=== PATIENT | male | born 1965 | race Caucasian/White ===

== ENCOUNTER 2021-02-10 06:56 | Emergency (ER) | payer SELFPAY ==
[~2021-02-10] VITALS: Ht 170.2 cm; Wt 82.0 kg
[2021-02-10 07:19] VITALS: BP 133/84
[2021-02-10 08:41] LABS: CLARITY URINE CLEAR (CLEAR); COLOR URINE YELLOW (YELLOW); KETONES URINE NEGATIVE (NEGATIVE); LEUKOCYTE ESTERASE URINE TRACE (NEGATIVE); NITRITE URINE NEGATIVE (NEGATIVE); OCCULT BLOOD URINE 1+ (NEGATIVE); PROTEIN URINE NEGATIVE (NEGATIVE); SPECIFIC GRAVITY URINE 1.019 (1.005-1.030)
[2021-02-10] MEDS ORDERED: NITR100C PO (09:16)
== END 2021-02-10 09:25 | disposition home or self-care (01) ==
LOC: ER 06:56
DX: N39.0 Urinary tract infection, site not specified (principal)
CPT/HCPCS: 81003; 87077; 87186; 99283

== ENCOUNTER 2022-03-27 19:51 | Inpatient (IN) | payer OTHER ==
[~2022-03-27] VITALS: Ht 170.2 cm; Wt 85.7 kg
[~2022-03-27 19:51] MED LIST: NITR100C PO
[2022-03-27] MEDS ORDERED: MAGNESIUM/ALUMINUM HYDROXIDE/SIMETHICONE 30ML UDC PO STA (23:43)
[2022-03-27] MEDS ORDERED: ACETAMINOPHEN 325MG TABLET PO STA (23:43)
[2022-03-27] MEDS ORDERED: FAMOTIDINE 20MG/2ML VIAL IV ONE (23:45)
[2022-03-28 00:15] LABS: CHLORIDE 107 mEq/L (98-107)
[2022-03-28 00:23] LABS: MEAN CORPUSCULAR HEMOGLOBIN 31.6 pg (28.0-32.0); MEAN PLATELET VOLUME 8.3 fl (7.4-10.4)
[2022-03-28 00:31] LABS: HEMATOCRIT. 43.8 % (42.0-52.0); HEMOGLOBIN. 15.1 g/dL (14.0-18.0); MEAN CORPUSCULAR VOLUME 91.7 fL (80.0-94.0); PLATELET 217 x1000/uL (130-400); RED BLOOD CELL COUNT 4.78 mill/uL (4.7-6.1); RED CELL DISTRIBUTION WIDTH 13.4 % (11.6-14.6)
[2022-03-28] MEDS ORDERED: ONDANSETRON HCL 4MG/2ML INJ IV STA (00:44)
[2022-03-28] MEDS ORDERED: MORPHINE SULFATE 4 MG/ML CPJ (NOT FOR IM USE) IV STA (00:44)
[2022-03-28] MEDS ORDERED: SODIUM CHLORIDE 0.9% 1,000 ML IV ONE (00:45)
[2022-03-28] MEDS ORDERED: FAMOTIDINE 20MG/2ML VIAL IV NR (03:15)
[2022-03-28] MEDS ORDERED: MAGNESIUM/ALUMINUM HYDROXIDE/SIMETHICONE 30ML UDC PO NR (03:15)
[2022-03-28] MEDS ORDERED: ACETAMINOPHEN 325MG TABLET PO NR (03:15)
[2022-03-28 04:37] LABS: PLATELET ESTIMATE NORMAL
[2022-03-28] MEDS ORDERED: ACETAMINOPHEN 325MG TABLET PO PRN (10:15)
[2022-03-28] MEDS ORDERED: ONDANSETRON HCL 4MG/2ML INJ IV PRN (10:15)
[2022-03-28] MEDS ORDERED: PIPERACILLIN/TAZ 3.375G PREMIX 50 ML IV SCH (10:15)
[2022-03-28] MEDS ORDERED: CLONIDINE 0.1MG TABLET PO PRN (10:15)
[2022-03-28] MEDS: SODIUM CHLORIDE 0.9% 1,000 ML IV SCH ×2 (10:25→18:32)
[2022-03-28] MEDS ORDERED: PIPERACILLIN/TAZOBACTAM 3.375G in DEXT 5% WATER 50ML IV SCH (12:00)
[2022-03-28 13:27] LABS: CHLORIDE 105 mEq/L (98-107)
[2022-03-28 14:34] LABS: AMYLASE 101 IU/L (25-115); HDL CHOLESTEROL 32 mg/dL (40-59); LDL CHOLESTEROL 124 mg/dL (5-100)
[2022-03-28 16:00] VITALS: BP 140/78
[2022-03-28 18:41] VITALS: BP 136/72
[2022-03-28 20:00] VITALS: BP 135/82
[2022-03-28] MEDS ORDERED: ENOXAPARIN 40MG/0.4ML SYR SUBCUT NR (20:30)
[2022-03-28] MEDS: PIPERACILLIN/TAZOBACTAM 3.375 G in DEXTROSE 5% WATER 50 ML IV SCH (22:03)
[2022-03-29] VITALS: BP 124/88
[2022-03-29] MEDS: SODIUM CHLORIDE 0.9% 1,000 ML IV SCH ×3 (02:06→17:46)
[2022-03-29 04:00] VITALS: BP 119/78
[2022-03-29] MEDS: PIPERACILLIN/TAZOBACTAM 3.375 G in DEXTROSE 5% WATER 50 ML IV SCH ×3 (07:08→22:00)
[2022-03-29 07:42] LABS: BASOPHILS % 0.5 % (0.0-2.0); EOSINOPHILS % 4.7 % (0.0-5.0); HEMATOCRIT. 44.2 % (42.0-52.0); HEMOGLOBIN. 15.5 g/dL (14.0-18.0); LYMPHOCYTES % 18.5 % (20.0-50.0); MEAN CORPUSCULAR HEMOGLOBIN 31.9 pg (28.0-32.0); MEAN PLATELET VOLUME 8.4 fl (7.4-10.4); NEUTROPHILS % 69.3 % (40.0-76.0); PLATELET 210 x1000/uL (130-400); RED BLOOD CELL COUNT 4.86 mill/uL (4.7-6.1)
[2022-03-29 07:48] LABS: CHLORIDE 104 mEq/L (98-107)
[2022-03-29 08:00] VITALS: BP 116/73
[2022-03-29 12:00] VITALS: BP 120/75
[2022-03-29] MEDS ORDERED: CEFAZOLIN SODIUM 1000MG/VIAL ONE (15:11)
[2022-03-29] MEDS ORDERED: POLYMYXIN B SULFATE 500000 UNITS/VIAL ONE (15:32)
[2022-03-29] MEDS ORDERED: BUPIVACAINE HCL/PF 0.5% (5MG/ML) 10ML ONE (15:32)
[2022-03-29] MEDS ORDERED: LIDOCAINE HCL 1% 10 MG/ML 10ML VIAL ONE (15:32)
[2022-03-29] MEDS ORDERED: BACITRACIN 15GM TUBE TOP ONE (15:33)
[2022-03-29 16:18] VITALS: BP 103/68
[2022-03-29] MEDS ORDERED: SKIN ADHESIVE 0.7 GM EA TOP ONE (18:23)
[2022-03-29] MEDS ORDERED: MIDAZOLAM HCL 2 MG/2 ML VIAL ONE ×2 (19:28→21:09)
[2022-03-29] MEDS ORDERED: FENTANYL CITRATE/PF 50MCG/ML 2ML VIAL ONE ×2 (19:28→20:19)
[2022-03-29] MEDS ORDERED: PROPOFOL 200MG/20ML VIAL IV ONE (19:30)
[2022-03-29] MEDS ORDERED: SUCCINYLCHOLINE CHLORIDE 200MG/10ML IV ONE (19:39)
[2022-03-29] MEDS ORDERED: ROCURONIUM BROMIDE 10MG/ML VIAL 5ML IV ONE (19:39)
[2022-03-29] MEDS ORDERED: KETOROLAC 30MG/ML VIAL ONE (20:18)
[2022-03-29] MEDS ORDERED: HYDROMORPHONE HCL/PF 2MG/ML CPJ IV PRN (20:30)
[2022-03-29] MEDS ORDERED: FENTANYL CITRATE/PF 50MCG/ML 2ML VIAL IV PRN (20:30)
[2022-03-29] MEDS ORDERED: GLYCOPYRROLATE 0.2 MG/ML 2ML VIAL ONE (20:37)
[2022-03-29] MEDS ORDERED: IPRATROPIUM/ALBUTEROL 0.5-3(2.5)MG/3ML NEB HHN STA (20:53)
[2022-03-29] MEDS ORDERED: HYDROCODONE/ACETAMINOPHEN 5/325MG TABLET PO PRN (21:00)
[2022-03-29] MEDS ORDERED: ALBUTEROL (0.083%) 2.5MG/3ML NEB HHN NR (21:00)
[2022-03-29] MEDS ORDERED: NALOXONE HCL 0.4MG/ML VIAL IV PRN (21:00)
[2022-03-29] MEDS ORDERED: IPRATROPIUM BROMIDE (0.02%) 0.5MG/2.5ML NEB HHN NR (21:00)
[2022-03-29 23:30] VITALS: BP 136/68
[2022-03-30] MEDS: SODIUM CHLORIDE 0.9% 1,000 ML IV SCH ×2 (02:15→10:41)
[2022-03-30] MEDS: PIPERACILLIN/TAZOBACTAM 3.375 G in DEXTROSE 5% WATER 50 ML IV SCH ×3 (02:15→14:54)
[2022-03-30 04:00] VITALS: BP 134/78
[2022-03-30 08:00] VITALS: BP 133/80
[2022-03-30] MEDS ORDERED: ENOXAPARIN 40MG/0.4ML SYR SUBCUT SCH (09:00)
[2022-03-30 11:59] LABS: BASOPHILS % 0.1 % (0.0-2.0); HEMATOCRIT. 43.1 % (42.0-52.0); HEMOGLOBIN. 14.9 g/dL (14.0-18.0); LYMPHOCYTES % 9.5 % (20.0-50.0); MEAN CORPUSCULAR HEMOGLOBIN 31.6 pg (28.0-32.0); MEAN CORPUSCULAR VOLUME 91.1 fL (80.0-94.0); MEAN PLATELET VOLUME 8.1 fl (7.4-10.4); MONOCYTES % 5.8 % (2.0-8.0); NEUTROPHILS % 84.6 % (40.0-76.0); PLATELET 238 x1000/uL (130-400); RED BLOOD CELL COUNT 4.72 mill/uL (4.7-6.1); RED CELL DISTRIBUTION WIDTH 13.1 % (11.6-14.6)
[2022-03-30 12:00] VITALS: BP 137/75
[2022-03-30 12:58] LABS: CHLORIDE 101 mEq/L (98-107)
[2022-03-30 13:05] LABS: AMYLASE 50 IU/L (25-115)
[2022-03-30 16:00] VITALS: BP 116/68
[2022-03-30] MEDS ORDERED: POTASSIUM CHLORIDE 20MEQ TABLET SR PO NR (16:00)
[2022-03-30 18:20] VITALS: BP 133/80
== END 2022-03-30 18:33 | disposition home or self-care (01) | DRG 417 ==
LOC: ER 19:51 → MICUSO 03-28 02:16 → 6EST 03-28 13:49
PROVIDERS: ADMIT Internal Medicine; ATTEND Internal Medicine
PROC: 0FT44ZZ Resection of Gallbladder, Percutaneous Endoscopic Approach (ICD-10-PCS; principal; 2022-03-29)
DX: K81.0 Acute cholecystitis (principal); K85.10 Biliary acute pancreatitis without necrosis or infection; I10 Essential (primary) hypertension; Z20.822 Contact with and (suspected) exposure to COVID-19
CPT/HCPCS: 36415; 71045; 74176; 76700; 80048; 80053; 80061; 82150; 85025; 87426; 88304; 93005; 99285; J0330; J0690; J1650; J1885; J2250; J2270; J2405; J2543; J2704; J3010; J3490; J7030; J7060